=== PATIENT | male | born 1970 | race African-American/Black ===

== ENCOUNTER 2017-04-18 04:52 | Emergency (ER) | payer SELFPAY ==
[~2017-04-18] VITALS: Ht 177.8 cm; Wt 70.0 kg
[2017-04-18 04:53] VITALS: BP 132/79; PULSE 71; RESP 18; TEMP 97.4; O2SAT 100
--- NOTE | 2017-04-18 05:18 | PD ---
HPI Chief Complaint: Skin Problem Time Seen by Provider: 05:12 Travel History International Travel<30 days: No Contact w/Intl Traveler<30days: No Traveled to known affect area: No History of Present Illness HPI 46-year-old black male presents emergency department with complains of a rash in his pubic area after shaving with a different soap this past week. Patient states the area is very pruritic initially it was swollen but that did improve. He states that he is still having pruritus. He denies any fever or chills. No drainage. Symptoms are moderate. No alleviating factors. Exacerbated by new soap. History Past Medical Histgory Medical History: Denies Significant Hx Social History Alcohol Use: No Tobacco Use: Yes (1PP3 DAYS) Allergies-Medications (Allergen,Severity, Reaction): Coded Allergies: latex (Verified Allergy, Mild, Rash, 04/18/17) "ONCE IN A WHILE" Reported Meds & Prescriptions Reported Meds & Active Scripts Active No Active Prescriptions or Reported Medications Review of Systems General / Constitutional: No: Fever Eyes: No: Visual changes HENT: No: Headaches Cardiovascular: No: Chest Pain or Discomfort Respiratory: No: Shortness of Breath Gastrointestinal: No: Abdominal Pain Genitourinary: No: Dysuria Musculoskeletal: No: Pain Skin: Positive Rash, Positive Itching, Positive Lumps, No Hives Neurologic: No: Weakness Psychiatric: No: Depression Endocrine: No: Polydipsia Hematologic/Lymphatic: No: Easy Bruising Physical Exam Narrative GENERAL: This is a well-nourished, well-developed patient, in no apparent distress. Patient's examined in the presence of the nurse. SKIN: No rashes, ecchymoses or lesions. Warm and dry. There is slight skin irritation to the groin and perineal region. No vesicles, pustules or hives. HEAD: Atraumatic. Normocephalic. EYES: PERRL, EOMI, no discharge or injection. No scleral icterus. EARS: Clear NOSE: Nasal turbinates appear normal. THROAT: Mucosa pink and moist. Airway patent. NECK: Trachea midline. supple, moves head freely. LUNGS: Clear to auscultation. CV: Regular in rhythm. ABDOMEN: Soft nontender. EXT: No clubbing cyanosis or edema. Data Data Last Documented VS Vital Signs Date Time Temp Pulse Resp B/P (MAP) Pulse Ox O2 Delivery O2 Flow Rate FiO2 04/18/17 04:53 97.4 71 18 132/79 (96) 100 MDM Medical Screen Exam Complete: Yes Emergency Medical Condition: No Differential Diagnosis MDM: Low Differential diagnoses: Abscess, folliculitis, cellulitis, lymphangitis, abrasion, contact dermatitis Narrative Course A medical screening exam was performed: At the time of evaluation the presenting medical condition was determined not to be of an emergent nature. The patient was given the option of receiving additional care, but declined. Patient was given options for additional community resources from which to obtain care. The Patient Has Been advised to seek medical attention for their presenting complaint. The patient has been advised to return to the ER at any time if an emergent condition develops. Primary Impression: Encounter for medical screening examination Scripts No Active Prescriptions or Reported Meds Condition: Clint Bethea Apr 18, 2017 05:18
== END 2017-04-18 05:27 | disposition left against medical advice (07) ==
LOC: NEPD 04:52
DX: R21 Rash and other nonspecific skin eruption (principal); L29.9 Pruritus, unspecified; F17.200 Nicotine dependence, unspecified, uncomplicated
CPT/HCPCS: 99281